=== PATIENT | female | born 1965 | race Caucasian/White ===

== ENCOUNTER 2016-11-10 19:18 | Emergency (ER) | payer OTHER, MEDICAID ==
[2016-11-10 19:26] VITALS: BP 143/69; PULSE 81; RESP 16; TEMP 97.9; O2SAT 99
--- NOTE | 2016-11-10 19:55 | EDPHY ---
H & P Time Seen by Provider: 11/10/16 19:35 HPI/ROS: CHIEF COMPLAINT: Right elbow injury HISTORY OF PRESENT ILLNESS: Patient is a 42-year-old female who presents emergency department with right elbow injury. She still states that she struck her "funny bone" twice on Sunday night at around 2:00 a.m.. She now has moderate to severe right elbow pain. It is worse with movement. She has no numbness or tingling. No swelling of the extremity. She denies other injury. 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 Head: Pupils equal. Normal. Respiratory: No respiratory distress. Cardiac: regular rate and rhythm. Extremities: patient's right upper extremity appears normal. There is no elbow swelling her bruising. No discoloration or redness. Patient has mild tenderness palpation over radial head. She has mild discomfort with range of motion. She has no proximal humerus or distal forearm tenderness to palpation. Neurovascular intact distally. Skin: No rashes or lesions. Neuro: Alert. Normal mood and affect. Constitutional: Initial Vital Signs Temperature (C) 36.6 C 11/10/16 19:23 Heart Rate 81 11/10/16 19:23 Respiratory Rate 16 11/10/16 19:23 Blood Pressure 143/69 H 11/10/16 19:23 O2 Sat (%) 99 11/10/16 19:23 O2 Delivery Mode Room Air Allergies/Adverse Reactions: meperidine [From Demerol] Allergy (Verified 11/10/16 19:27) Home Medications: Medication Instructions Recorded Hydrocodone/APAP 5/325 [[place] 1 - 2 tab PO Q6H PRN #20 tab 01/23/15 5/325] Hydrochlorothiazide 07/24/15 Soma (RX) 07/24/15 Medical Decision Making - Diagnostics Imaging Results: Imaging Impressions Elbow X-Ray 11/10/16 19:32 Impression: No acute osseous findings. Findings discussed with Charlette Austin 11/10/2016 at 20:14. ED Course/Re-evaluation: In the emergency department I discussed possible etiologies with the patient. An x-ray of her right elbow was ordered. Right elbow x-ray: No acute disease noted. Please refer to the dictated report. I discussed the results with the patient. I answered all her questions. She was given warnings prior to leaving. She will return with worsening symptoms. Patient stated she wanted narcotic pain medication. She requested a RX of Soma. With a negative x-ray and the patient's findings, I do not feel she needed narcotic medication at this time. I offered her ibuprofen, ice, sling, other medications but she refused. She only wanted narcotic medications. She became agitated and angry that I would not prescribe her these medications. Differential Diagnosis: Differential includes but is not limited to contusion, fracture, dislocation, sprain Departure - Departure Disposition: Home, Routine, Self-Care Clinical Impression: Contusion of right elbow Qualifiers: Encounter type: initial encounter Qualified Code(s): S50.01XA - Contusion of right elbow, initial encounter Condition: Good Instructions: Contusion in Adults (ED) Additional Instructions: Return with increasing redness, pain, numbness, tingling or any other concerns. Your x-ray was normal. It showed no fracture or dislocation. If this happened work you need follow-up with workman's Comp. If this happened outside of work follow up with Orthopedics. Referrals: Work Comp Referral [facility] [Outside] - 2-3 days, call for appt. Sp Duarte MD [Medical Doctor] - 5-7 days, call for appt.
== END 2016-11-10 20:24 | disposition home or self-care (01) ==
LOC: CED 19:18
DX: S50.01XA Contusion of right elbow, initial encounter (principal); F17.200 Nicotine dependence, unspecified, uncomplicated; W22.8XXA Striking against or struck by other objects, initial encounter
CPT/HCPCS: 73080-PO